=== PATIENT | female | born 1970 | race African-American/Black ===

== ENCOUNTER 2023-10-27 01:30 | Inpatient (IN) | payer OTHER ==
[2023-10-27 01:53] VITALS: BMI 38.7
[2023-10-27 04:41] LABS: BASO % 0.4 % (0-2.0); EOS % 2.7 % (0-4.5); HEMATOCRIT 39.2 % (32.4-45.2); HEMOGLOBIN 12.6 GM/dL (10.7-15.3); LYMPH % 23.1 % (8-40); MCH 26.5 pg (25.7-33.7); MCHC 32.2 g/dl (32.0-36.0); MEAN CELL VOLUME 82.2 fl (80-96); MEAN PLT VOLUME 6.8 fl (7.5-11.1); MONO % 10.1 % (3.8-10.2); NEUT % 63.7 % (42.8-82.8); PLATELET COUNT 183 10^3/uL (134-434); RBC 4.77 M/mm3 (3.60-5.2)
[2023-10-27 04:48] LABS: INR 1.08 (0.83-1.09); PROTHROMBIN TIME (PATIENT) 12.4 SEC (9.7-13.0)
[2023-10-27 04:50] LABS: ACTIVATED PTT 32.9 SECONDS (25.2-36.5)
[2023-10-27 05:03] LABS: CALCIUM 9.5 mg/dL (8.5-10.1)
[2023-10-27 05:04] LABS: ALBUMIN 3.6 g/dl (3.4-5.0); BLOOD UREA NITROGEN 16.4 mg/dL (7-18)
[2023-10-27 05:07] LABS: CREATININE 1.1 mg/dL (0.55-1.3)
[2023-10-27 05:08] LABS: BILIRUBIN,TOTAL 0.2 mg/dL (0.2-1); TOT PROT 8.3 g/dl (6.4-8.2)
[2023-10-27] MEDS: LINEZOLID 600 MG PREMIX BAG 600 MG in PREMIX 300 IVPB ONE (06:11)
[2023-10-27] MEDS: TOPIRAMATE 100 MG TABLET PO SCH (18:30)
[2023-10-27] MEDS: SPIRONOLACTONE 25 MG TABLET PO SCH (18:30)
[2023-10-27] MEDS: ATORVASTATIN CA 10 MG TABLET (FP) PO SCH (18:41)
[2023-10-27] MEDS: HEPARIN NA (PORCINE) 5,000 UNITS/ML 1ML VIAL SQ SCH (21:36)
[2023-10-27] MEDS: levETIRAcetam 500 MG TABLET (FP) PO SCH (21:38)
[2023-10-27] MEDS: DOCUSATE SODIUM 100 MG CAPSULE (FP) PO SCH (21:38)
[2023-10-27] MEDS: lamoTRIgine 100 MG TABLET PO SCH (21:38)
[2023-10-28 09:16] LABS: BASO % 0.7 % (0-2.0); EOS % 2.5 % (0-4.5); HEMATOCRIT 37.3 % (32.4-45.2); HEMOGLOBIN 12.1 GM/dL (10.7-15.3); LYMPH % 28.4 % (8-40); MCH 26.5 pg (25.7-33.7); MCHC 32.6 g/dl (32.0-36.0); MEAN CELL VOLUME 81.4 fl (80-96); MEAN PLT VOLUME 7.1 fl (7.5-11.1); MONO % 11.1 % (3.8-10.2); NEUT % 57.3 % (42.8-82.8); PLATELET COUNT 189 10^3/uL (134-434); RBC 4.58 M/mm3 (3.60-5.2); WHITE BLOOD COUNT 5.8 K/mm3 (4.0-10.0)
[2023-10-28 09:36] LABS: POTASSIUM 3.6 mmol/L (3.5-5.1)
[2023-10-28 09:39] LABS: ALBUMIN 3.6 g/dl (3.4-5.0); BLOOD UREA NITROGEN 23.3 mg/dL (7-18); CALCIUM 9.2 mg/dL (8.5-10.1)
[2023-10-28 09:42] LABS: CREATININE 1.2 mg/dL (0.55-1.3)
[2023-10-28 09:44] LABS: BILIRUBIN,TOTAL 0.3 mg/dL (0.2-1)
[2023-10-28] MEDS: FOLIC ACID 1 MG TABLET (FP) PO SCH (10:35)
[2023-10-28] MEDS: cloBAZam 10 MG TABLET PO SCH (10:35)
[2023-10-28] MEDS: FUROSEMIDE 20 MG TABLET (FP) PO SCH (10:35)
[2023-10-28] MEDS: CALCIUM 500MG/VIT-D 200 UNITS COMBO TABLET (FP) PO SCH (10:35)
[2023-10-28] MEDS: CEFAZOLIN 1 GM in DEXTROSE 5%-WATER - 50 ML IVPB SCH (19:00)
[2023-10-28] MEDS: ACETAMINOPHEN 325 MG TABLET (FP) PO PRN (23:42)
[2023-10-29 08:02] LABS: EPI CELLS 15 /uL (0-25.1); HYALINE CASTS 1 /uL (0-3.1); PH,URINE 6.5 (5.0-8.0); URINE APPEARANCE CLOUDY; URINE BACTERIA 397 /uL (0-1359); URINE BILIRUBIN NEGATIVE (NEGATIVE); URINE COLOR ORANGE; URINE GLUCOSE (UA) NEGATIVE (NEGATIVE); URINE KETONE NEGATIVE (NEGATIVE); URINE LEUK ESTERASE 3+ (NEGATIVE); URINE NITRITE NEGATIVE (NEGATIVE); URINE PROTEIN 3+ (NEGATIVE); URINE RBC 6760 /uL (0-23.9); URINE UROBILINOGEN 0.2 mg/dL (0.2-1.0); URINE WBC 632 /uL (0-25.8)
[2023-10-29 08:19] LABS: BASO % 0.6 % (0-2.0); EOS % 2.3 % (0-4.5); HEMATOCRIT 37.6 % (32.4-45.2); HEMOGLOBIN 12.1 GM/dL (10.7-15.3); LYMPH % 34.5 % (8-40); MCH 26.5 pg (25.7-33.7); MCHC 32.2 g/dl (32.0-36.0); MEAN CELL VOLUME 82.2 fl (80-96); MEAN PLT VOLUME 7.7 fl (7.5-11.1); MONO % 11.7 % (3.8-10.2); NEUT % 50.9 % (42.8-82.8); PLATELET COUNT 182 10^3/uL (134-434); RBC 4.57 M/mm3 (3.60-5.2); WHITE BLOOD COUNT 6.4 K/mm3 (4.0-10.0)
[2023-10-29 08:26] LABS: POTASSIUM 3.9 mmol/L (3.5-5.1)
[2023-10-29 08:40] LABS: BLOOD UREA NITROGEN 21.4 mg/dL (7-18); CALCIUM 8.9 mg/dL (8.5-10.1)
[2023-10-29 08:44] LABS: CREATININE 1.1 mg/dL (0.55-1.3)
[2023-10-29] MEDS: PATIENT'S OWN MEDICATION (NON-FORMULARY) (Spironolactone [Spironolactone] 50 MG Tablet) PO SCH (12:08)
[2023-10-30 07:25] LABS: HEMATOCRIT 37.2 % (32.4-45.2); HEMOGLOBIN 12.2 GM/dL (10.7-15.3); MCH 27.1 pg (25.7-33.7); MCHC 32.9 g/dl (32.0-36.0); MEAN CELL VOLUME 82.2 fl (80-96); MEAN PLT VOLUME 6.9 fl (7.5-11.1); PLATELET COUNT 187 10^3/uL (134-434); RBC 4.52 M/mm3 (3.60-5.2); RDW 13.8 % (11.6-15.6); WHITE BLOOD COUNT 6.3 K/mm3 (4.0-10.0)
[2023-10-30 07:42] LABS: POTASSIUM 3.6 mmol/L (3.5-5.1)
[2023-10-30 07:44] LABS: BLOOD UREA NITROGEN 20.3 mg/dL (7-18); CALCIUM 9.3 mg/dL (8.5-10.1)
[2023-10-30 07:47] LABS: CREATININE 1.1 mg/dL (0.55-1.3)
[2023-10-30] MEDS: CEPHALEXIN MONOHYDRATE 500 MG CAPSULE (UD) PO SCH ×2 (15:14→21:51)
[2023-10-30] MEDS: CITALOPRAM HYDROBROMIDE 20 MG TABLET PO SCH (21:50)
[2023-10-30] MEDS: TOPIRAMATE 100 MG, TOPIRAMATE 50 MG PO SCH (21:51)
[2023-10-31 07:00] LABS: POTASSIUM 4.2 mmol/L (3.5-5.1)
[2023-10-31 07:02] LABS: CALCIUM 9.1 mg/dL (8.5-10.1)
[2023-10-31 07:03] LABS: ALBUMIN 3.7 g/dl (3.4-5.0); MAGNESIUM 2.1 mg/dL (1.8-2.4)
[2023-10-31 07:06] LABS: CREATININE 1.1 mg/dL (0.55-1.3); PHOSPHOROUS 2.8 mg/dL (2.5-4.9)
[2023-10-31 07:08] LABS: BILIRUBIN,TOTAL 0.3 mg/dL (0.2-1); TOT PROT 8.2 g/dl (6.4-8.2)
[2023-10-31 07:40] LABS: BASO % 0.5 % (0-2.0); EOS % 2.1 % (0-4.5); HEMATOCRIT 39.3 % (32.4-45.2); HEMOGLOBIN 12.5 GM/dL (10.7-15.3); LYMPH % 24.9 % (8-40); MCH 26.6 pg (25.7-33.7); MCHC 31.7 g/dl (32.0-36.0); MEAN CELL VOLUME 83.8 fl (80-96); MEAN PLT VOLUME 7.7 fl (7.5-11.1); MONO % 10.2 % (3.8-10.2); NEUT % 62.3 % (42.8-82.8); RBC 4.69 M/mm3 (3.60-5.2); RDW 13.8 % (11.6-15.6); WHITE BLOOD COUNT 8.8 K/mm3 (4.0-10.0)
[2023-10-31 09:04] LABS: PLATELET COUNT 166 10^3/uL (134-434)
[2023-10-31] MEDS: TOPIRAMATE 150 MG PO SCH (11:40)
[2023-10-31 21:56] VITALS: RESP 18
[2023-11-01 12:05] VITALS: BP 117/74; PULSE 78; TEMP 97.9
== END 2023-11-01 11:20 | disposition home or self-care (01) | DRG 383 ==
LOC: JER 01:30 → JERBED 09:06 → OBSVTOIN 11:41 → J7W 13:29
PROVIDERS: ADMIT Internal Medicine; ATTEND Internal Medicine
DX: L03.116 Cellulitis of left lower limb (principal); R53.2 Functional quadriplegia; E78.5 Hyperlipidemia, unspecified; F81.9 Developmental disorder of scholastic skills, unspecified; G40.909 Epilepsy, unspecified, not intractable, without status epilepticus; I10 Essential (primary) hypertension; N39.0 Urinary tract infection, site not specified
CPT/HCPCS: 36415; 80048; 80053; 81003; 83735; 84100; 85025; 85027; 85610; 85730; 86140; 87086; 87635; 93306-TC; 93971-TC; 99285-25; G0378; J1644

== ENCOUNTER 2023-11-29 05:08 | Inpatient (IN) | payer OTHER ==
[2023-11-29] MEDS ORDERED: PROPOFOL 20 ML ONE (13:37)
[2023-11-29] MEDS ORDERED: LIDOCAINE HCL/PF 2% SDV 5ML VIAL ONE (13:37)
[2023-11-29] MEDS ORDERED: MIDAZOLAM HCL 2 MG/2 ML SINGLE DOSE VIAL ONE (13:37)
[2023-11-29] MEDS ORDERED: KETOROLAC TROMETHAMINE 30 MG/1 ML VIAL ONE (15:49)
[2023-11-29] MEDS ORDERED: ONDANSETRON 4 MG/2 ML VIAL ONE (15:49)
[2023-11-29] MEDS ORDERED: ceFAZolin SODIUM 1 GM VIAL ONE (15:49)
[2023-11-29] MEDS ORDERED: DEXAMETHASONE SOD PHOSPHATE 4 MG/1 ML VIAL ONE (15:49)
[2023-11-29] MEDS ORDERED: SPIRONOLACTONE 25 MG TABLET PO SCH (18:00)
[2023-11-29] MEDS: lamoTRIgine 100 MG TABLET PO SCH (22:04)
[2023-11-29] MEDS: CITALOPRAM HYDROBROMIDE 20 MG TABLET PO SCH (22:04)
[2023-11-29] MEDS: SPIRONOLACTONE 25 MG TABLET PO SCH (22:04)
[2023-11-29] MEDS: levETIRAcetam 500 MG TABLET (FP) PO SCH (22:04)
[2023-11-29] MEDS: cloBAZam 10 MG TABLET PO SCH (22:05)
[2023-11-29] MEDS: HEPARIN NA (PORCINE) 5,000 UNITS/ML 1ML VIAL SQ SCH (22:06)
[2023-11-29] MEDS: TOPIRAMATE 200 MG TABLET PO SCH (22:20)
[2023-11-30 09:33] LABS: BASO % 0.5 % (0-2.0); EOS % 3.1 % (0-4.5); HEMATOCRIT 37.1 % (32.4-45.2); HEMOGLOBIN 11.9 GM/dL (10.7-15.3); LYMPH % 33.4 % (8-40); MCH 26.3 pg (25.7-33.7); MCHC 32.2 g/dl (32.0-36.0); MEAN CELL VOLUME 81.9 fl (80-96); MEAN PLT VOLUME 7.2 fl (7.5-11.1); MONO % 11.8 % (3.8-10.2); NEUT % 51.2 % (42.8-82.8); PLATELET COUNT 192 10^3/uL (134-434); RBC 4.54 M/mm3 (3.60-5.2); RDW 13.7 % (11.6-15.6); WHITE BLOOD COUNT 4.9 K/mm3 (4.0-10.0)
[2023-11-30] MEDS ORDERED: TOPIRAMATE 100 MG TABLET PO SCH (10:00)
[2023-11-30 10:20] LABS: POTASSIUM 3.8 mmol/L (3.5-5.1)
[2023-11-30 10:25] LABS: CALCIUM 8.9 mg/dL (8.5-10.1)
[2023-11-30 10:26] LABS: BLOOD UREA NITROGEN 17.1 mg/dL (7-18)
[2023-11-30] MEDS: SPIRONOLACTONE 25 MG TABLET PO SCH (18:06)
[2023-11-30] MEDS: FOLIC ACID 1 MG TABLET (FP) PO SCH (18:07)
[2023-11-30] MEDS: FUROSEMIDE 20 MG TABLET (FP) PO SCH (18:08)
[2023-11-30] MEDS: TOPIRAMATE 100 MG, TOPIRAMATE 50 MG PO SCH (18:09)
[2023-11-30] MEDS: ATORVASTATIN CA 10 MG TABLET (FP) PO SCH (21:56)
[2023-12-05 10:37] LABS: INR 0.96 (0.83-1.09); PROTHROMBIN TIME (PATIENT) 10.9 SEC (9.7-13.0)
[2023-12-05 10:40] LABS: ACTIVATED PTT 19.2 SECONDS (25.2-36.5)
[2023-12-05 10:48] LABS: POTASSIUM 4.2 mmol/L (3.5-5.1)
[2023-12-05 10:51] LABS: ALBUMIN 3.9 g/dl (3.4-5.0)
[2023-12-05 10:52] LABS: BLOOD UREA NITROGEN 20.6 mg/dL (7-18)
[2023-12-05 10:53] LABS: CALCIUM 9.8 mg/dL (8.5-10.1); MAGNESIUM 2.4 mg/dL (1.8-2.4)
[2023-12-05 10:55] LABS: CREATININE 1.2 mg/dL (0.55-1.3)
[2023-12-05 10:56] LABS: BILIRUBIN,TOTAL 0.3 mg/dL (0.2-1); TOT PROT 8.8 g/dl (6.4-8.2)
[2023-12-05 11:06] LABS: HEMATOCRIT 42.4 % (32.4-45.2); HEMOGLOBIN 13.4 GM/dL (10.7-15.3); MCHC 31.7 g/dl (32.0-36.0); MEAN CELL VOLUME 81.8 fl (80-96); MEAN PLT VOLUME 7.6 fl (7.5-11.1); PLATELET COUNT 190 10^3/uL (134-434); RBC 5.18 M/mm3 (3.60-5.2); RDW 14.1 % (11.6-15.6)
[2023-12-05 11:09] LABS: WHITE BLOOD COUNT 9.7 K/mm3 (4.0-10.0)
[2023-12-05] MEDS ORDERED: PROPOFOL 40 ML ONE (14:02)
[2023-12-05] MEDS ORDERED: MIDAZOLAM HCL 2 MG/2 ML SINGLE DOSE VIAL ONE ×3 (14:20→20:17)
[2023-12-05] MEDS: ceFAZolin SODIUM 1 GM VIAL IVPB ONE ×2 (14:30)
[2023-12-05] MEDS: GENTAMICIN SO4 80 MG/2 ML VIAL IVPB ONE (14:53)
[2023-12-05] MEDS ORDERED: ONDANSETRON 4 MG/2 ML VIAL IVPUSH PRN (15:43)
[2023-12-05] MEDS ORDERED: ACETAMINOPHEN INJECTION 100 ML IVPB ONE (15:54)
[2023-12-05] MEDS: ACETAMINOPHEN 1000 MG/100 ML BAG IVPB ONE (15:58)
[2023-12-05] MEDS: LACTATED RINGERS SOLUTION 1,000 ML IV SCH (16:59)
[2023-12-05] MEDS: MIDAZOLAM HCL 2 MG/2 ML SINGLE DOSE VIAL IVPUSH ONE (20:20)
[2023-12-05] MEDS: NOREPINEPHRINE BITARTRATE 4,000 MCG in DEXTROSE 5%-WATER - 496 ML IV SCH (20:30)
[2023-12-05] MEDS: NOREPINEPHRINE BITARTRATE/D5W 8 MG/250 ML BAG IVPB SCH (21:15)
[2023-12-05 22:01] LABS: BASO % 0.4 % (0-2.0); EOS % 0.4 % (0-4.5); HEMATOCRIT 41.6 % (32.4-45.2); HEMOGLOBIN 12.9 GM/dL (10.7-15.3); LYMPH % 12.2 % (8-40); MCH 26.1 pg (25.7-33.7); MCHC 30.9 g/dl (32.0-36.0); MEAN CELL VOLUME 84.4 fl (80-96); MEAN PLT VOLUME 7.5 fl (7.5-11.1); MONO % 1.3 % (3.8-10.2); NEUT % 85.7 % (42.8-82.8); PLATELET COUNT 93 10^3/uL (134-434); RBC 4.92 M/mm3 (3.60-5.2); RDW 14.3 % (11.6-15.6); WHITE BLOOD COUNT 3.6 K/mm3 (4.0-10.0)
[2023-12-05] MEDS: MEROPENEM 1 GM in DEXTROSE 5%-WATER 100 ML IVPB ONE (22:05)
[2023-12-05 22:10] LABS: POTASSIUM 3.5 mmol/L (3.5-5.1)
[2023-12-05 22:12] LABS: CALCIUM 8.9 mg/dL (8.5-10.1)
[2023-12-05 22:13] LABS: BLOOD UREA NITROGEN 27.1 mg/dL (7-18); MAGNESIUM 1.8 mg/dL (1.8-2.4)
[2023-12-05 22:16] LABS: CREATININE 2.3 mg/dL (0.55-1.3); PHOSPHOROUS 4.6 mg/dL (2.5-4.9)
[2023-12-05] MEDS: HYDROmorphone HCl 2 MG/ML VIAL IVPUSH PRN (22:19)
[2023-12-05 22:36] LABS: LACTIC ACID 6.3 mmol/L (0.4-2.0)
[2023-12-05] MEDS ORDERED: VASopressin 20 UNITS/ML VIAL IV ONE (22:43)
[2023-12-05] MEDS: VASopressin 40 UNITS/100 ML BAG IV SCH (22:45)
[2023-12-05] MEDS: LACTATED RINGERS SOLUTION 1,000 ML/1,000 ML INFUS.BAG IV SCH (23:30)
[2023-12-06 00:14] LABS: INR 2.26 (0.83-1.09); PROTHROMBIN TIME (PATIENT) 24.9 SEC (9.7-13.0)
[2023-12-06] MEDS: SPIRONOLACTONE 25 MG TABLET PO SCH ×2 (01:06→10:46)
[2023-12-06] MEDS: LACTATED RINGERS SOLUTION 1000 ML INFUS.BAG IV ONE (01:06)
[2023-12-06] MEDS: MUPIROCIN 2% TOPICAL OINTMENT FOR DECOLONIZATION NS SCH (01:07)
[2023-12-06] MEDS: CHLORHEXIDINE GLUCONATE 4% CLEANSER FOR DECOLONIZATION TP SCH (01:07)
[2023-12-06] MEDS: CITALOPRAM HYDROBROMIDE 20 MG TABLET PO SCH (01:08)
[2023-12-06] MEDS: HYDROCORTISONE SOD SUCCINATE 100 MG/2 ML VIAL IVPUSH SCH ×2 (01:10→15:45)
[2023-12-06] MEDS: MAGNESIUM SULFATE IN WATER 2 GM/50 ML IVPB IVPB ONE (01:10)
[2023-12-06 01:34] LABS: HIV INTERPRETATION NEGATIVE (NEGATIVE)
[2023-12-06] MEDS: TOPIRAMATE 200 MG TABLET PO SCH (01:57)
[2023-12-06] MEDS: cloBAZam 10 MG TABLET PO SCH (01:57)
[2023-12-06] MEDS: ATORVASTATIN CA 10 MG TABLET (FP) PO SCH (01:58)
[2023-12-06] MEDS: levETIRAcetam 500 MG TABLET (FP) PO SCH (01:58)
[2023-12-06] MEDS: KCL 20 MEQ PREMIX BAG 20 MEQ/100 ML INFUS.BAG IVPB SCH (01:59)
[2023-12-06] MEDS: LACTATED RINGERS SOLUTION 1,000 ML/1,000 ML INFUS.BAG IV ONE (02:00)
[2023-12-06] MEDS ORDERED: PHENYLEPHRINE HCL 10 MG/1 ML SINGLE DOSE VIAL ONE (02:05)
[2023-12-06] MEDS: PHENYLEPHRINE NS PREMIX 50,000 MCG/500 ML BAG IVPB SCH (02:05)
[2023-12-06] MEDS ORDERED: RAPID SEQUENCE INTUBATION KIT NR ONE ×2 (02:05→12:44)
[2023-12-06 02:16] LABS: HEMATOCRIT 31.3 % (32.4-45.2); HEMOGLOBIN 9.8 GM/dL (10.7-15.3); MCH 26.1 pg (25.7-33.7); MCHC 31.3 g/dl (32.0-36.0); MEAN CELL VOLUME 83.4 fl (80-96); PLATELET COUNT 91 10^3/uL (134-434); RBC 3.75 M/mm3 (3.60-5.2); RDW 14.3 % (11.6-15.6); WHITE BLOOD COUNT 11.2 K/mm3 (4.0-10.0)
[2023-12-06] MEDS: lamoTRIgine 100 MG TABLET PO SCH (02:24)
[2023-12-06] MEDS: LINEZOLID 600 MG PREMIX BAG 600 MG/300 ML BAG IVPB SCH (03:12)
[2023-12-06] MEDS: DOXYCYCLINE INJECTION 100 MG in DEXTROSE 5%-WATER 100 ML IVPB SCH (05:18)
[2023-12-06] MEDS ORDERED: MEROPENEM 1 GM in DEXTROSE 5%-WATER 100 ML IVPB SCH (06:00)
[2023-12-06 06:22] LABS: ARTERIAL BLD GAS O2 SATURATION 93.5 % (95-98); ARTERIAL BLOOD GAS BASE EXCESS -16.8 mmol/L (-2-2); ARTERIAL BLOOD GAS PO2 83.3 mmHg (80-100)
[2023-12-06 06:25] LABS: HEMATOCRIT 34.7 % (32.4-45.2); MCH 27.5 pg (25.7-33.7); MCHC 31.6 g/dl (32.0-36.0); MEAN PLT VOLUME 8.5 fl (7.5-11.1); PLATELET COUNT 77 10^3/uL (134-434); RBC 3.99 M/mm3 (3.60-5.2); RDW 14.4 % (11.6-15.6)
[2023-12-06 06:28] LABS: ANISOCYTOSIS 3+; MACROCYTOSIS 0; ROULEAU 2+
[2023-12-06] MEDS: MEROPENEM 1 GM in DEXTROSE 5%-WATER 100 ML IVPB SCH ×2 (06:29→14:21)
[2023-12-06 06:36] LABS: ARTERIAL BLOOD GAS pH 7.166 (7.350-7.450)
[2023-12-06 06:38] LABS: POTASSIUM 4.6 mmol/L (3.5-5.1)
[2023-12-06 06:40] LABS: MAGNESIUM 3.2 mg/dL (1.8-2.4)
[2023-12-06 06:43] LABS: CALCIUM 7.5 mg/dL (8.5-10.1); PHOSPHOROUS 5.2 mg/dL (2.5-4.9)
[2023-12-06] MEDS: SODIUM BICARBONATE 8.4% 50 MEQ/50 ML DISP.SYRIN IVPUSH ONE (06:45)
[2023-12-06 06:49] LABS: INR 1.91 (0.83-1.09); LACTIC ACID 7.7 mmol/L (0.4-2.0); PROTHROMBIN TIME (PATIENT) 21.2 SEC (9.7-13.0)
[2023-12-06] MEDS: ACETAMINOPHEN 1000 MG/100 ML BAG IVPB PRN (08:11)
[2023-12-06] MEDS: levETIRAcetam 500 MG/5 ML INJECTION VIAL IVPB SCH (08:49)
[2023-12-06 09:59] LABS: HEMATOCRIT 29.1 % (32.4-45.2); HEMOGLOBIN 9.3 GM/dL (10.7-15.3); MCH 28.1 pg (25.7-33.7); MCHC 31.9 g/dl (32.0-36.0); MEAN CELL VOLUME 87.9 fl (80-96); MEAN PLT VOLUME 8.6 fl (7.5-11.1); PLATELET COUNT 63 10^3/uL (134-434); RBC 3.31 M/mm3 (3.60-5.2); RDW 14.4 % (11.6-15.6); WHITE BLOOD COUNT 15.1 K/mm3 (4.0-10.0)
[2023-12-06 10:41] LABS: ANISOCYTOSIS 0; MACROCYTOSIS 0
[2023-12-06] MEDS: FOLIC ACID 1 MG TABLET (FP) PO SCH (10:46)
[2023-12-06] MEDS: FUROSEMIDE 20 MG TABLET (FP) PO SCH (10:46)
[2023-12-06] MEDS ORDERED: MIDAZOLAM HCL 5 MG/1 ML Single Dose Vial ONE (12:46)
[2023-12-06] MEDS ORDERED: FENTANYL NS IVPB 500 MCG/100 ML BAG IVPB ONE (13:12)
[2023-12-06] MEDS: FENTANYL NS IVPB 500 MCG/100 ML BAG IVPB SCH (13:47)
[2023-12-06 13:49] LABS: HEMATOCRIT 22.9 % (32.4-45.2); HEMOGLOBIN 7.5 GM/dL (10.7-15.3); MCH 28.2 pg (25.7-33.7); MCHC 32.6 g/dl (32.0-36.0); MEAN CELL VOLUME 86.4 fl (80-96); MEAN PLT VOLUME 8.9 fl (7.5-11.1); PLATELET COUNT 53 10^3/uL (134-434); RBC 2.65 M/mm3 (3.60-5.2); WHITE BLOOD COUNT 15.2 K/mm3 (4.0-10.0)
[2023-12-06 13:51] LABS: LACTIC ACID 12.6 mmol/L (0.4-2.0)
[2023-12-06 13:56] LABS: INR 1.63 (0.83-1.09); PROTHROMBIN TIME (PATIENT) 18.5 SEC (9.7-13.0)
[2023-12-06 13:59] LABS: ACTIVATED PTT 50.9 SECONDS (25.2-36.5)
[2023-12-06 14:08] LABS: CHLORIDE 114 mmol/L (98-107); POTASSIUM 4.6 mmol/L (3.5-5.1); SODIUM 142 mmol/L (136-145)
[2023-12-06 14:10] LABS: ANION GAP 17 mmol/L (4-13); BLOOD UREA NITROGEN 39.3 mg/dL (7-18); CO2 11 mmol/L (21-32); GLUCOSE,RANDOM 254 mg/dL (74-106)
[2023-12-06 14:13] LABS: CREATININE 3.7 mg/dL (0.55-1.3); SGOT/AST 161 U/L (15-37); SGPT/ALT 56 U/L (13-61)
[2023-12-06 14:14] LABS: ALBUMIN 1.7 g/dl (3.4-5.0); BILIRUBIN,TOTAL 1.6 mg/dL (0.2-1); CALCIUM 6.8 mg/dL (8.5-10.1)
[2023-12-06 14:16] LABS: ALK PHOS 47 U/L (45-117)
[2023-12-06] MEDS: PANTOPRAZOLE SODIUM 40 MG VIAL IVPUSH SCH (14:20)
[2023-12-06] MEDS: LACTATED RINGERS SOLUTION 1,000 ML/1,000 ML INFUS.BAG IV STA ×2 (14:20→18:30)
[2023-12-06] MEDS: LACTATED RINGERS SOLUTION 1,000 ML/1,000 ML INFUS.BAG IV SCH (14:22)
[2023-12-06] MEDS: SODIUM BICARBONATE 8.4% 50 MEQ/50 ML DISP.SYRIN IVPUSH SCH (14:24)
[2023-12-06 14:25] LABS: TOT PROT 3.8 g/dl (6.4-8.2)
[2023-12-06] MEDS: MIDAZOLAM HCL 5 MG/1 ML Single Dose Vial IVPUSH ONE (14:39)
[2023-12-06 15:03] LABS: ARTERIAL BLD GAS O2 SATURATION 99.8 % (95-98); ARTERIAL BLOOD GAS BASE EXCESS -11.7 mmol/L (-2-2); ARTERIAL BLOOD GAS PO2 361.2 mmHg (80-100); ARTERIAL BLOOD GAS pH 7.352 (7.350-7.450)
[2023-12-06 15:07] LABS: ANISOCYTOSIS 0; MACROCYTOSIS 0
[2023-12-06 15:11] LABS: ALLENS TEST POSITIVE; VENT MODE A/C
[2023-12-06 15:12] LABS: VENT RATE 14
[2023-12-06 15:15] VITALS: BMI 33.0
[2023-12-06] MEDS: TOPIRAMATE 100 MG, TOPIRAMATE 50 MG PO SCH (15:46)
[2023-12-06 18:35] LABS: HEMATOCRIT 24.4 % (32.4-45.2); HEMOGLOBIN 8.2 GM/dL (10.7-15.3); MCHC 33.5 g/dl (32.0-36.0); MEAN CELL VOLUME 86.6 fl (80-96); PLATELET COUNT 44 10^3/uL (134-434); RBC 2.82 M/mm3 (3.60-5.2); RDW 14.7 % (11.6-15.6); WHITE BLOOD COUNT 15.8 K/mm3 (4.0-10.0)
[2023-12-06 18:43] LABS: LACTIC ACID 12.4 mmol/L (0.4-2.0)
[2023-12-06 20:21] LABS: ANISOCYTOSIS 2+; MACROCYTOSIS 0; OVALOCYTE 1+; TEAR DROP CELLS 1+
[2023-12-06] MEDS: SODIUM BICARBONATE 8.4% - 150 MEQ in DEXTROSE 5%-WATER - 950 ML IVPB ONE (22:10)
[2023-12-06] MEDS: CALCIUM GLUC IN NACL, ISO-OSM 1 GM/50 ML BAG IVPB ONE (22:11)
[2023-12-06] MEDS: PHYTONADIONE 10 MG/1 ML AMP IVPB ONE (22:12)
[2023-12-06 22:22] LABS: HEMATOCRIT 27.6 % (32.4-45.2); HEMOGLOBIN 9.2 GM/dL (10.7-15.3); MCH 29.1 pg (25.7-33.7); MCHC 33.3 g/dl (32.0-36.0); MEAN CELL VOLUME 87.3 fl (80-96); MEAN PLT VOLUME 9.4 fl (7.5-11.1); PLATELET COUNT 41 10^3/uL (134-434); RBC 3.16 M/mm3 (3.60-5.2); WHITE BLOOD COUNT 19.6 K/mm3 (4.0-10.0)
[2023-12-06 22:36] LABS: INR 1.99 (0.83-1.09); PROTHROMBIN TIME (PATIENT) 22.4 SEC (9.7-13.0)
[2023-12-06 22:55] LABS: LACTIC ACID 11.4 mmol/L (0.4-2.0)
[2023-12-06 23:22] LABS: ANISOCYTOSIS 2+; MACROCYTOSIS 0; OVALOCYTE 1+; TARGET CELLS 1+; TEAR DROP CELLS 1+
[2023-12-07] MEDS: SODIUM BICARBONATE 8.4% - 150 MEQ in DEXTROSE 5%-WATER - 950 ML IVPB ONE (01:50)
[2023-12-07 03:34] LABS: ARTERIAL BLD GAS O2 SATURATION 98.9 % (95-98); ARTERIAL BLOOD GAS PO2 190.1 mmHg (80-100)
[2023-12-07 03:37] LABS: ARTERIAL BLOOD GAS pH 7.138 (7.350-7.450)
[2023-12-07 03:38] LABS: HEMATOCRIT 21.8 % (32.4-45.2); HEMOGLOBIN 7.3 GM/dL (10.7-15.3); MCH 29.2 pg (25.7-33.7); MCHC 33.5 g/dl (32.0-36.0); MEAN CELL VOLUME 87.1 fl (80-96); MEAN PLT VOLUME 7.9 fl (7.5-11.1); PLATELET COUNT 160 10^3/uL (134-434); RDW 14.8 % (11.6-15.6); WHITE BLOOD COUNT 23.2 K/mm3 (4.0-10.0)
[2023-12-07 03:46] LABS: INR 1.97 (0.83-1.09); PROTHROMBIN TIME (PATIENT) 22.2 SEC (9.7-13.0)
[2023-12-07 06:29] LABS: CHLORIDE 109 mmol/L (98-107); POTASSIUM 5.5 mmol/L (3.5-5.1); SODIUM 143 mmol/L (136-145)
[2023-12-07 06:30] LABS: ALBUMIN 1.5 g/dl (3.4-5.0); ANION GAP 25 mmol/L (4-13); BLOOD UREA NITROGEN 45.7 mg/dL (7-18); CO2 9 mmol/L (21-32); GLUCOSE,RANDOM 182 mg/dL (74-106)
[2023-12-07 06:32] LABS: CALCIUM 6.2 mg/dL (8.5-10.1)
[2023-12-07 06:34] LABS: CREATININE 4.1 mg/dL (0.55-1.3)
[2023-12-07 06:36] LABS: BILIRUBIN,TOTAL 1.7 mg/dL (0.2-1); TOT PROT 3.2 g/dl (6.4-8.2)
[2023-12-07 06:46] LABS: ALK PHOS 86 U/L (45-117)
[2023-12-07 07:36] LABS: SGOT/AST 2561 U/L (15-37); SGPT/ALT 1415 U/L (13-61)
[2023-12-07 08:10] LABS: HEMATOCRIT 25.6 % (32.4-45.2); HEMOGLOBIN 8.5 GM/dL (10.7-15.3); MCH 29.7 pg (25.7-33.7); MCHC 33.1 g/dl (32.0-36.0); MEAN CELL VOLUME 89.9 fl (80-96); MEAN PLT VOLUME 8.5 fl (7.5-11.1); PLATELET COUNT 114 10^3/uL (134-434); RBC 2.85 M/mm3 (3.60-5.2); RDW 14.8 % (11.6-15.6); WHITE BLOOD COUNT 25.6 K/mm3 (4.0-10.0)
[2023-12-07 08:26] LABS: INR 2.41 (0.83-1.09); PROTHROMBIN TIME (PATIENT) 26.5 SEC (9.7-13.0)
[2023-12-07 08:29] LABS: ACTIVATED PTT 56.3 SECONDS (25.2-36.5)
[2023-12-07] MEDS: SODIUM BICARBONATE 8.4% - 150 MEQ in DEXTROSE 5%-WATER - 950 ML IVPB SCH (08:43)
[2023-12-07 08:52] LABS: CHLORIDE 105 mmol/L (98-107); LACTIC ACID 17.5 mmol/L (0.4-2.0); POTASSIUM 6.1 mmol/L (3.5-5.1); SODIUM 139 mmol/L (136-145)
[2023-12-07 08:55] LABS: ALBUMIN 1.4 g/dl (3.4-5.0); ANION GAP 24 mmol/L (4-13); BLOOD UREA NITROGEN 52.5 mg/dL (7-18); CO2 10 mmol/L (21-32); CREATININE 4.4 mg/dL (0.55-1.3); GLUCOSE,RANDOM 210 mg/dL (74-106)
[2023-12-07 08:58] LABS: ALK PHOS 135 U/L (45-117); BILIRUBIN,TOTAL 1.8 mg/dL (0.2-1); TOT PROT 3.1 g/dl (6.4-8.2)
[2023-12-07 09:06] LABS: SGPT/ALT 2876 U/L (13-61)
[2023-12-07 09:11] LABS: ARTERIAL BLD GAS O2 SATURATION 98.2 % (95-98); ARTERIAL BLOOD GAS BASE EXCESS -20.8 mmol/L (-2-2); ARTERIAL BLOOD GAS PO2 156.1 mmHg (80-100)
[2023-12-07 09:11] LABS: ANISOCYTOSIS 0; MACROCYTOSIS 0
[2023-12-07 09:14] LABS: SGOT/AST 6208 U/L (15-37)
[2023-12-07 09:15] LABS: ALLENS TEST POSITIVE; VENT MODE A/C
[2023-12-07 09:16] LABS: VENT RATE 22
[2023-12-07 09:17] LABS: ARTERIAL BLOOD GAS pH 7.075 (7.350-7.450)
[2023-12-07] MEDS: SODIUM BICARBONATE 8.4% 50 MEQ/50 ML DISP.SYRIN IVPUSH ONE ×4 (09:40→23:30)
[2023-12-07] MEDS: INSULIN REGULAR HUMAN 100 UNITS/ML *VIAL IVPUSH ONE (09:44)
[2023-12-07] MEDS: DEXTROSE 50%-WATER 25 GM/50 ML DISP.SYRIN IVPUSH ONE (09:45)
[2023-12-07] MEDS: CALCIUM GLUC IN NACL, ISO-OSM 1 GM/50 ML BAG IVPB ONE (09:45)
[2023-12-07] MEDS ORDERED: SODIUM CHLORIDE 250 ML IV PRN (10:27)
[2023-12-07 10:48] LABS: HEMATOCRIT 17.3 % (32.4-45.2); MCH 29.7 pg (25.7-33.7); MCHC 33.1 g/dl (32.0-36.0); MEAN CELL VOLUME 89.9 fl (80-96); MEAN PLT VOLUME 8.7 fl (7.5-11.1); PLATELET COUNT 76 10^3/uL (134-434); RBC 1.93 M/mm3 (3.60-5.2); RDW 14.7 % (11.6-15.6); WHITE BLOOD COUNT 16.6 K/mm3 (4.0-10.0)
[2023-12-07 10:54] LABS: INR 3.44 (0.83-1.09); PROTHROMBIN TIME (PATIENT) 37.5 SEC (9.7-13.0)
[2023-12-07 10:57] LABS: ACTIVATED PTT 67.3 SECONDS (25.2-36.5)
[2023-12-07 11:02] LABS: CHLORIDE 102 mmol/L (98-107); POTASSIUM 5.9 mmol/L (3.5-5.1); SODIUM 138 mmol/L (136-145)
[2023-12-07 11:04] LABS: HEMOGLOBIN 5.7 GM/dL (10.7-15.3)
[2023-12-07 11:10] LABS: ANION GAP 25 mmol/L (4-13); BLOOD UREA NITROGEN 49.6 mg/dL (7-18); CO2 12 mmol/L (21-32); GLUCOSE,RANDOM 382 mg/dL (74-106)
[2023-12-07 11:13] LABS: CREATININE 4.3 mg/dL (0.55-1.3)
[2023-12-07 11:14] LABS: BILIRUBIN,TOTAL 1.6 mg/dL (0.2-1); TOT PROT 2.1 g/dl (6.4-8.2)
[2023-12-07 11:15] LABS: ALBUMIN 0.9 g/dl (3.4-5.0); ALK PHOS 111 U/L (45-117); CALCIUM 5.5 mg/dL (8.5-10.1)
[2023-12-07 11:22] LABS: HEMATOCRIT 17.6 % (32.4-45.2); MCH 29.9 pg (25.7-33.7); MCHC 33.6 g/dl (32.0-36.0); MEAN PLT VOLUME 8.6 fl (7.5-11.1); PLATELET COUNT 78 10^3/uL (134-434); RBC 1.98 M/mm3 (3.60-5.2); RDW 14.3 % (11.6-15.6); WHITE BLOOD COUNT 16.9 K/mm3 (4.0-10.0)
[2023-12-07 11:26] LABS: SGPT/ALT 2561 U/L (13-61)
[2023-12-07 11:27] LABS: HEMOGLOBIN 5.9 GM/dL (10.7-15.3)
[2023-12-07 11:46] LABS: LACTIC ACID 19.7 mmol/L (0.4-2.0); SGOT/AST 5456 U/L (15-37)
[2023-12-07] MEDS: PHYTONADIONE 10 MG/1 ML AMP IVPB ONE (12:05)
[2023-12-07 12:09] LABS: ANISOCYTOSIS 1+; MACROCYTOSIS 0
[2023-12-07] MEDS: SODIUM BICARBONATE 8.4% 50 MEQ/50 ML VIAL IVPUSH ONE (15:45)
[2023-12-07 16:49] LABS: HEMATOCRIT 38.4 % (32.4-45.2); HEMOGLOBIN 13.1 GM/dL (10.7-15.3); MCH 30.5 pg (25.7-33.7); MCHC 34.1 g/dl (32.0-36.0); MEAN CELL VOLUME 89.3 fl (80-96); MEAN PLT VOLUME 9.1 fl (7.5-11.1); PLATELET COUNT 39 10^3/uL (134-434); RDW 14.2 % (11.6-15.6); WHITE BLOOD COUNT 13.7 K/mm3 (4.0-10.0)
[2023-12-07 16:56] LABS: INR 1.62 (0.83-1.09); PROTHROMBIN TIME (PATIENT) 18.1 SEC (9.7-13.0)
[2023-12-07 17:12] LABS: CHLORIDE 107 mmol/L (98-107); POTASSIUM 4.6 mmol/L (3.5-5.1); SODIUM 146 mmol/L (136-145)
[2023-12-07 17:15] LABS: ANION GAP 22 mmol/L (4-13); BLOOD UREA NITROGEN 28.9 mg/dL (7-18); CO2 17 mmol/L (21-32); GLUCOSE,RANDOM 253 mg/dL (74-106)
[2023-12-07 17:18] LABS: CREATININE 2.3 mg/dL (0.55-1.3)
[2023-12-07 17:19] LABS: BILIRUBIN,TOTAL 3.1 mg/dL (0.2-1); TOT PROT 3.9 g/dl (6.4-8.2)
[2023-12-07 18:08] LABS: ALBUMIN 1.9 g/dl (3.4-5.0); ALK PHOS 170 U/L (45-117); CALCIUM 6.5 mg/dL (8.5-10.1); LACTIC ACID 14.6 mmol/L (0.4-2.0); SGOT/AST 9404 U/L (15-37); SGPT/ALT 3660 U/L (13-61)
[2023-12-07 18:15] LABS: PHOSPHOROUS 5.4 mg/dL (2.5-4.9)
[2023-12-07 20:59] LABS: HEMATOCRIT 33.6 % (32.4-45.2); HEMOGLOBIN 11.4 GM/dL (10.7-15.3); MCH 30.3 pg (25.7-33.7); MCHC 34.1 g/dl (32.0-36.0); MEAN CELL VOLUME 88.9 fl (80-96); RBC 3.78 M/mm3 (3.60-5.2); RDW 14.4 % (11.6-15.6); WHITE BLOOD COUNT 15.6 K/mm3 (4.0-10.0)
[2023-12-07 21:06] LABS: INR 2.03 (0.83-1.09); PROTHROMBIN TIME (PATIENT) 22.5 SEC (9.7-13.0)
[2023-12-07 21:09] LABS: PLATELET COUNT 36 10^3/uL (134-434)
[2023-12-07] MEDS: PIPERACILLIN/TAZOB 3.375 GM 3.375 GM in DEXTROSE 5%-WATER - 50 ML IVPB SCH (21:11)
[2023-12-07 21:54] LABS: LACTIC ACID 21.6 mmol/L (0.4-2.0)
[2023-12-07 21:55] LABS: ALBUMIN 1.5 g/dl (3.4-5.0); ALK PHOS 170 U/L (45-117); ANION GAP 28 mmol/L (4-13); BILIRUBIN,TOTAL 3.2 mg/dL (0.2-1); BLOOD UREA NITROGEN 39.8 mg/dL (7-18); CALCIUM 5.6 mg/dL (8.5-10.1); CHLORIDE 102 mmol/L (98-107); CO2 11 mmol/L (21-32); CREATININE 3.4 mg/dL (0.55-1.3); GLUCOSE,RANDOM 251 mg/dL (74-106); POTASSIUM 5.5 mmol/L (3.5-5.1); SODIUM 141 mmol/L (136-145); TOT PROT 3.1 g/dl (6.4-8.2)
[2023-12-07 22:09] LABS: SGOT/AST 9253 U/L (15-37); SGPT/ALT 3291 U/L (13-61)
[2023-12-07] MEDS ORDERED: SODIUM BICARBONATE 8.4% 50 MEQ/50 ML DISP.SYRIN ONE (22:51)
[2023-12-07] MEDS: CALCIUM GLUCONATE 10% - 1,000 MG/10 ML VIAL IVPUSH ONE ×2 (23:30)
[2023-12-08] MEDS: SODIUM BICARBONATE 8.4% 50 MEQ/50 ML DISP.SYRIN IVPUSH ONE ×2 (02:40→03:24)
[2023-12-08] MEDS ORDERED: SODIUM BICARBONATE 8.4% 50 MEQ/50 ML VIAL ONE (02:47)
[2023-12-08 06:33] LABS: ARTERIAL BLD GAS O2 SATURATION 92.2 % (95-98); ARTERIAL BLOOD GAS PO2 87.6 mmHg (80-100)
[2023-12-08 06:35] LABS: ARTERIAL BLOOD GAS pH 7.044 (7.350-7.450)
[2023-12-08 06:48] LABS: HEMATOCRIT 25.6 % (32.4-45.2); HEMOGLOBIN 8.4 GM/dL (10.7-15.3); MCHC 32.9 g/dl (32.0-36.0); MEAN CELL VOLUME 91.4 fl (80-96); MEAN PLT VOLUME 8.8 fl (7.5-11.1); PLATELET COUNT 68 10^3/uL (134-434); RDW 14.3 % (11.6-15.6); WHITE BLOOD COUNT 19.5 K/mm3 (4.0-10.0)
[2023-12-08 07:08] LABS: CHLORIDE 97 mmol/L (98-107); SODIUM 143 mmol/L (136-145)
[2023-12-08 07:18] LABS: ALBUMIN 1.1 g/dl (3.4-5.0); ALK PHOS 212 U/L (45-117); ANION GAP 37 mmol/L (4-13); BLOOD UREA NITROGEN 40.5 mg/dL (7-18); CALCIUM 6.2 mg/dL (8.5-10.1); CO2 9 mmol/L (21-32); CREATININE 3.8 mg/dL (0.55-1.3); GLUCOSE,RANDOM 173 mg/dL (74-106); POTASSIUM 6.8 mmol/L (3.5-5.1); TOT PROT 2.5 g/dl (6.4-8.2)
[2023-12-08 07:19] LABS: LACTIC ACID 34.1 mmol/L (0.4-2.0)
[2023-12-08 07:24] LABS: SGPT/ALT 2754 U/L (13-61)
[2023-12-08 07:32] LABS: SGOT/AST 7798 U/L (15-37)
[2023-12-08 08:37] LABS: HEMATOCRIT 24.2 % (32.4-45.2); HEMOGLOBIN 7.9 GM/dL (10.7-15.3); MCH 30.2 pg (25.7-33.7); MCHC 32.8 g/dl (32.0-36.0); PLATELET COUNT 57 10^3/uL (134-434); RBC 2.63 M/mm3 (3.60-5.2); RDW 14.7 % (11.6-15.6); WHITE BLOOD COUNT 21.3 K/mm3 (4.0-10.0)
[2023-12-08] MEDS: DEXTROSE 50%-WATER 25 GM/50 ML DISP.SYRIN IVPUSH ONE (08:37)
[2023-12-08] MEDS: INSULIN REGULAR HUMAN 100 UNITS/ML *VIAL IVPUSH ONE (08:37)
[2023-12-08] MEDS: CALCIUM GLUCONATE IN NACL 1 GM/50 ML BAG IVPB ONE (08:37)
[2023-12-08 08:51] LABS: CHLORIDE 97 mmol/L (98-107); SODIUM 143 mmol/L (136-145)
[2023-12-08 08:54] LABS: ALBUMIN 1.1 g/dl (3.4-5.0); CO2 6 mmol/L (21-32)
[2023-12-08 08:56] LABS: ANION GAP 40 mmol/L (4-13); BLOOD UREA NITROGEN 39.6 mg/dL (7-18); CALCIUM 6.1 mg/dL (8.5-10.1); GLUCOSE,RANDOM 152 mg/dL (74-106); MAGNESIUM 2.5 mg/dL (1.8-2.4); POTASSIUM 7.9 mmol/L (3.5-5.1)
[2023-12-08 08:58] LABS: BILIRUBIN,TOTAL 2.9 mg/dL (0.2-1); CREATININE 3.8 mg/dL (0.55-1.3); TOT PROT 2.4 g/dl (6.4-8.2)
[2023-12-08 09:00] LABS: ALK PHOS 221 U/L (45-117)
[2023-12-08 09:17] LABS: INR 3.4 (0.83-1.09); PROTHROMBIN TIME (PATIENT) 37.7 SEC (9.7-13.0)
[2023-12-08 09:18] LABS: LACTIC ACID 36.7 mmol/L (0.4-2.0); SGOT/AST 8414 U/L (15-37); SGPT/ALT 2804 U/L (13-61)
[2023-12-08] MEDS ORDERED: EPINEPHrine 1:10,000 (P-F SYR) 1 MG/10 ML DISP.SYRIN ONE (09:33)
[2023-12-08 09:52] LABS: PHOSPHOROUS 13.3 mg/dL (2.5-4.9)
[2023-12-08] MEDS: ALBUTEROL SO4 0.083% IH SOL 2.5 MG/3 ML VIAL.NEB. NEB PRN (10:15)
[2023-12-08 11:16] VITALS: BP 50/23; PULSE 0; RESP 22; TEMP 95.6
[2023-12-08 11:23] LABS: POTASSIUM 9.4 mmol/L (3.5-5.1)
[2023-12-08] MEDS ORDERED: ALBUTEROL SULFATE 0.021% (0.63 MG/3 ML) VIAL.NEB NEB SCH (14:00)
[2023-12-18 16:08] LABS: SIZE 5x3 mm (.); WEIGHT 79 mg (.)
[2023-12-22 01:06] LABS: SIZE 3x2 mm (.); WEIGHT 14 mg (.)
== END 2023-12-08 10:30 | disposition expired | DRG 443 ==
LOC: JASU-SURG 05:08 → J2C 17:48 → UNDOADMOB 18:08 → J2C 18:08 → J5S 18:59 → OBSVTOIN 12-01 10:29 → JICU 12-05 20:59
PROVIDERS: ADMIT Internal Medicine; ATTEND Internal Medicine Pulmonary Disease
PROC: BT14ZZZ Fluoroscopy of Kidneys, Ureters and Bladder (ICD-10-PCS; 2023-12-05)
PROC: 0TCB8ZZ Extirpation of Matter from Bladder, Via Natural or Artificial Opening Endoscopic (ICD-10-PCS; 2023-12-05)
PROC: 0TC68ZZ Extirpation of Matter from Right Ureter, Via Natural or Artificial Opening Endoscopic (ICD-10-PCS; principal; 2023-12-05 13:15)
PROC: 0TP98DZ Removal of Intraluminal Device from Ureter, Via Natural or Artificial Opening Endoscopic (ICD-10-PCS; 2023-12-05 13:15)
PROC: 0T788DZ Dilation of Bilateral Ureters with Intraluminal Device, Via Natural or Artificial Opening Endoscopic (ICD-10-PCS; 2023-12-05 13:15)
PROC: 0TP98DZ Removal of Intraluminal Device from Ureter, Via Natural or Artificial Opening Endoscopic (ICD-10-PCS; 2023-12-05 13:15)
PROC: 06HN33Z Insertion of Infusion Device into Left Femoral Vein, Percutaneous Approach (ICD-10-PCS; 2023-12-06)
PROC: B54CZZA Ultrasonography of Left Lower Extremity Veins, Guidance (ICD-10-PCS; 2023-12-06)
PROC: 4A133B1 Monitoring of Arterial Pressure, Peripheral, Percutaneous Approach (ICD-10-PCS; 2023-12-06)
PROC: 4A133J1 Monitoring of Arterial Pulse, Peripheral, Percutaneous Approach (ICD-10-PCS; 2023-12-06)
PROC: 04L93DZ Occlusion of Right Renal Artery with Intraluminal Device, Percutaneous Approach (ICD-10-PCS; 2023-12-06)
PROC: 0BH17EZ Insertion of Endotracheal Airway into Trachea, Via Natural or Artificial Opening (ICD-10-PCS; 2023-12-06)
PROC: 5A1945Z Respiratory Ventilation, 24-96 Consecutive Hours (ICD-10-PCS; 2023-12-06)
PROC: 06HM33Z Insertion of Infusion Device into Right Femoral Vein, Percutaneous Approach (ICD-10-PCS; 2023-12-07)
PROC: B54BZZA Ultrasonography of Right Lower Extremity Veins, Guidance (ICD-10-PCS; 2023-12-07)
PROC: 30233N1 Transfusion of Nonautologous Red Blood Cells into Peripheral Vein, Percutaneous Approach (ICD-10-PCS; 2023-12-07)
PROC: 30233K1 Transfusion of Nonautologous Frozen Plasma into Peripheral Vein, Percutaneous Approach (ICD-10-PCS; 2023-12-07)
PROC: 30233R1 Transfusion of Nonautologous Platelets into Peripheral Vein, Percutaneous Approach (ICD-10-PCS; 2023-12-07)
PROC: 5A12012 Performance of Cardiac Output, Single, Manual (ICD-10-PCS; 2023-12-08)
DX: N13.6 Pyonephrosis (principal); T81.40XA Infection following a procedure, unspecified, initial encounter; A41.51 Sepsis due to Escherichia coli [E. coli]; T81.44XA Sepsis following a procedure, initial encounter; T81.12XA Postprocedural septic shock, initial encounter; S36.892A Contusion of other intra-abdominal organs, initial encounter; J95.821 Acute postprocedural respiratory failure; N21.0 Calculus in bladder; N20.2 Calculus of kidney with calculus of ureter; N17.9 Acute kidney failure, unspecified; I10 Essential (primary) hypertension; E78.5 Hyperlipidemia, unspecified; G80.9 Cerebral palsy, unspecified; G40.909 Epilepsy, unspecified, not intractable, without status epilepticus; D65 Disseminated intravascular coagulation [defibrination syndrome]; G91.9 Hydrocephalus, unspecified; F72 Severe intellectual disabilities; T79.A3XA Traumatic compartment syndrome of abdomen, initial encounter; I95.81 Postprocedural hypotension; R14.0 Abdominal distension (gaseous); Y83.8 Other surgical procedures as the cause of abnormal reaction of the patient, or of later complication, without mention of misadventure at the time of the procedure; Z86.73 Personal history of transient ischemic attack (TIA), and cerebral infarction without residual deficits; D64.9 Anemia, unspecified
CPT/HCPCS: 0241U-QW; 31500; 36415; 36430; 36600; 37244; 71045-TC-FY; 74176-TC; 76000-TC-FY; 80048; 80053; 80170; 82272; 82308; 82360; 82803; 82962; 83605; 83735; 84100; 84132; 84703; 85025; 85027; 85610; 85730; 86704; 86803; 86850; 86900; 86901; 86922; 87040; 87086; 87186; 87340; 87389; 87517; 88300-TC; 93005; 93010; 93306-TC; 94002; 94640; 94760; C1758; C2617; G0378; J0131; J1644; J3490; P9017; P9034; P9037; P9038; P9058